=== PATIENT | female | born 1955 | race Caucasian/White ===

== ENCOUNTER → 2016-07-27 | Outpatient (CLI) | payer OTHER ==
[~2016-07-27] MED LIST: BENTYL 20 MG TA20 M1 PO; BENTYL20 MG PO; CELEXA PO; CELEXA20 MG PO; CYCLOBENZAPRINE10 MG PO; DARVOCET-N 1001 EACH PO; FLAGYL500 MG PO; FLOVENT DISKUS50 MCG IH; FUROSEMIDE 20 M20 M1 PO; GABAPENTIN 100100 MG PO; GLIPIZIDE ER10 MG PO; GLUCOPHAGE1000 MG PO; GLUCOTROL5 MG PO; IBUPROFEN 600600 M1 PO; JANUMET 50-1,01 EACH; JANUMET 50-1,01 EACH PO; JANUMET XR 50-1 EAC1 PO; JANUVIA100 MG PO; K-DUR10 MEQ PO; KEFLEX500 MG PO; KLOR-CON 1010 MEQ PO; LASIX 20 MG TAB20 MG PO; LEVEMIR SUBQ; LEVOXYL75 MCG; LIPITOR PO; LIPITOR10 MG PO; LISINOPRIL20 MG PO; LYRICA150 MG PO; MECLIZINE HCL25 M1 PO; METFORMIN 500500 MG PO; METFORMIN HCL500 MG PO; MUCINEX TA600 MG/TA2 PO; NEURONTIN 300300 M1; ONDANSETRON HCL4 M2 PO; PEPCID40 MG PO; PROTONIX PO; PROTONIX40 M1 PO; PROTONIX40 M2 PO; REGLAN 10 MG TA10 MG PO; SYNTHROID75 MCG PO; VALIUM5 MG PO; ZOFRAN ODT4 MG PO; ZYRTEC10 M2 PO; ZYRTEC10 MG PO
== END ==
LOC: RAD 09:10
DX: M54.5 Low back pain (principal); M25.551 Pain in right hip

== ENCOUNTER 2016-08-11 07:25 | Emergency (ER) | payer OTHER ==
[~2016-08-11] VITALS: Ht 157.5 cm; Wt 105.7 kg
[~2016-08-11 07:25] MED LIST changes: -ZOFRAN ODT4 MG PO
[2016-08-11 08:14] LABS: URINE BILIRUBIN NEGATIVE (Negative); URINE BLOOD NEGATIVE (Negative); URINE COLOR YELLOW; URINE GLUCOSE-RANDOM* NEGATIVE (Negative); URINE KETONES NEGATIVE (Negative); URINE NITRITE NEGATIVE (Negative); URINE PROTEIN (DIPSTICK) NEGATIVE (Negative); URINE SPECIFIC GRAVITY 1.015 (1.003-1.035); URINE UROBILINOGEN 0.2 E.U./dl (0.2-1.0)
[2016-08-11] MEDS ORDERED: ZOFRAN ODT4 MG PO (08:58)
[2016-08-11 09:19] VITALS: BP 113/63
== END 2016-08-11 09:19 | disposition home or self-care (01) ==
LOC: ER 07:25
PROVIDERS: Emergency Medicine
DX: K21.9 Gastro-esophageal reflux disease without esophagitis (principal); E11.9 Type 2 diabetes mellitus without complications; Z90.49 Acquired absence of other specified parts of digestive tract; Z90.711 Acquired absence of uterus with remaining cervical stump; Z88.5 Allergy status to narcotic agent

== ENCOUNTER → 2017-12-21 | Outpatient (CLI) | payer OTHER ==
[~2017-12-21] MED LIST changes: +ZOFRAN ODT4 MG PO
== END ==
LOC: BC 08:07 → ULTRA 08:07
DX: Z12.31 Encounter for screening mammogram for malignant neoplasm of breast (principal); K76.0 Fatty (change of) liver, not elsewhere classified; Z90.49 Acquired absence of other specified parts of digestive tract